=== PATIENT | female | born 2000 | race Hispanic/Latino ===

== ENCOUNTER 2023-08-22 13:15 | Emergency (ER) | payer BC, MEDICAID ==
[~2023-08-22] VITALS: Ht 157.5 cm; Wt 87.5 kg
[2023-08-22 13:56] LABS: BASOPHILS 0.5 % (0-2); EOSINOPHILS 1.7 % (0-6); HEMATOCRIT 37.4 % (35.0-50.0); HEMOGLOBIN 12.8 g/dL (12.0-18.0); LYMPHOCYTES 29.2 % (24-44); MCH 31.2 (27-36); MCHC 34.1 g/dl (30-36); MCV 91.4 fl (81-99); MONOCYTES 4.7 % (0-12); NEUTROPHILS 63.9 % (39-80); PLATELET COUNT 254 K/uL (140-440); RBC 4.09 M/ul (4.3-5.7); RDW 12.5 (10.5-15.0)
[2023-08-22 14:11] LABS: ALBUMIN 3.5 g/dL (3.4-5.0); ALBUMIN/GLOBULIN RATIO 0.9 (1.1-2.4); ANION GAP 15.5 (7-21); BILIRUBIN, TOTAL 0.2 ng/dL (0.2-1.0); CALCIUM 8.6 mg/dL (8.5-10.1); CREATININE, SERUM 0.7 mg/dL (0.55-1.02); POTASSIUM 3.5 mmol/L (3.5-5.1); PROTEIN, TOTAL 7.4 g/dL (6.4-8.2)
[2023-08-22 16:14] VITALS: BP 149/105
== END 2023-08-22 16:18 | disposition home or self-care (01) ==
LOC: ED 13:15
PROVIDERS: Internal Medicine
DX: R10.13 Epigastric pain (principal)
CPT/HCPCS: 36415; 80053; 83690; 84703; 85025; 96374; 99284-25; J2405